=== PATIENT | female | born 1970 | race American Indian/Alaskan Native ===

== ENCOUNTER 2018-10-06 00:26 | Emergency (ER) | payer BC, OTHER ==
[~2018-10-06] VITALS: Ht 170.2 cm; Wt 67.6 kg
[2018-10-06] MEDS ORDERED: ONDANSETRON 4 MG/2 ML VIAL IV ONE (00:45)
[2018-10-06] MEDS ORDERED: IV NORMAL SALINE 1000 ML BAG IV ONE ×2 (00:45→02:15)
[2018-10-06] MEDS ORDERED: MORPHINE SULFATE 2 MG/1 ML DISP.SYRIN IV ONE (00:45)
--- NOTE | 2018-10-06 00:45 | NUR ---
Pt. ambulated into ED w/ c/o lower mid abd. pain x 1 day 01/01, denies N/V/D states she had a "ruptured ovarian cyst x 1 month ago and this feels the same", A/Ox4, RR even and unlabored, speaks in clear and complete sentences, male licensed optician at bedside, bed in low position, wheels locked,
[2018-10-06] MEDS ORDERED: ONDANSETRON 4 MG/2 ML VIAL ONE (01:06)
[2018-10-06] MEDS ORDERED: MORPHINE SULFATE 2 MG/1 ML DISP.SYRIN ONE (01:06)
[2018-10-06 01:13] LABS: BASOPHILS % (AUTO) 0.6 % (0.0-2.0); EOSINOPHILS # (AUTO) 0.5 K/uL (0.0-0.7); EOSINOPHILS % (AUTO) 8.3 % (0.0-7.0); HEMATOCRIT 39.1 % (31.2-41.9); HEMOGLOBIN 12.9 g/dL (10.9-14.3); LYMPHOCYTES # (AUTO) 2.1 K/uL (20.0-40.0); LYMPHOCYTES % (AUTO) 34.2 % (20.5-51.5); MEAN CORPUSCULAR HEMOGLOBIN 29.3 uug (24.7-32.8); MEAN CORPUSCULAR HGB CONC 33 g/dL (32.3-35.6); MEAN CORPUSCULAR VOLUME 89.2 fL (75.5-95.3); MONOCYTES # (AUTO) 0.4 K/uL (2.0-10.0); MONOCYTES % (AUTO) 7.1 % (0.0-11.0); NEUTROPHILS # (AUTO) 3.1 K/uL (1.8-8.9); NEUTROPHILS % (AUTO) 49.8 % (38.5-71.5); PLATELET COUNT (AUTO) 282 K/uL (179-408); RED BLOOD CELL COUNT(AUTO) 4.38 MIL/uL (3.63-4.92); WHITE BLOOD COUNT (AUTO) 6.2 K/uL (3.8-11.8)
[2018-10-06 01:25] LABS: CARBON DIOXIDE 30 mmol/L (21-32); CHLORIDE 104 mmol/L (98-107); CREATININE 1.1 mg/dL (0.6-1.3); GLUCOSE 94 mg/dL (74-106); UREA NITROGEN, BLOOD 19 mg/dL (7-18)
[2018-10-06] MEDS ORDERED: LIDOCAINE VISCUS 2% 15 ML UDC MM ONE (01:30)
[2018-10-06] MEDS ORDERED: MAG HYDROX/AL HYDROX/SIMETH 30 ML LIQUID UDC PO ONE (01:30)
[2018-10-06] MEDS ORDERED: HYDROMORPHONE 1 MG/1 ML DISP.SYRIN IV ONE (01:30)
--- NOTE | 2018-10-06 01:30 | NUR ---
Pt. c/o stomach pain/heartburn/upset stomach - denies N/V, refuses dilauded, consulted w/ Dr. Gimenez,
[2018-10-06 01:31] LABS: ALANINE AMINOTRANSFERASE 27 U/L (14-59); ALKALINE PHOSPHATASE 80 U/L (50-136); ASPARTATE AMINOTRANSFERASE 10 U/L (15-37); BILIRUBIN,DIRECT 0.1 mg/dL (0.0-0.2); BILIRUBIN,TOTAL 0.1 mg/dL (0.2-1.0); LIPASE 246 U/L (73-393); TOTAL PROTEIN, SERUM 7.9 g/dL (6.4-8.2)
[2018-10-06] MEDS ORDERED: HYDROMORPHONE 1 MG/1 ML DISP.SYRIN ONE (01:31)
[2018-10-06] MEDS ORDERED: MAGNESIUM HYDROXIDE 30 ML LIQUID UDC ONE (01:38)
[2018-10-06] MEDS ORDERED: LIDOCAINE VISCUS 2% 15 ML UDC ONE (01:38)
[2018-10-06] MEDS ORDERED: MAG HYDROX/AL HYDROX/SIMETH 30 ML LIQUID UDC ONE (01:39)
--- NOTE | 2018-10-06 01:40 | NUR ---
US tech. at bedside
--- NOTE | 2018-10-06 01:47 | NUR ---
Called Physical Design Engineer for female drafting technician for US,
--- NOTE | 2018-10-06 01:53 | NUR ---
Manuela - Nurse Inside Sales Advisor at bedside for US witness,
[2018-10-06] MEDS ORDERED: KETOROLAC TROMETHAMINE 30 MG INJ ONE (02:21)
[2018-10-06] MEDS ORDERED: KETOROLAC TROMETHAMINE 30 MG INJ IVP ONE (02:30)
--- NOTE | 2018-10-06 02:30 | NUR ---
Called Rad. for CT w/ contrast,
[2018-10-06] MEDS ORDERED: IV NORMAL SALINE 250 ML IV ONE (02:42)
[2018-10-06] MEDS ORDERED: SWABABLE VALVE TRANSFER SET EA MC ONE (02:42)
[2018-10-06] MEDS ORDERED: IOHEXOL 300MG/ML 100 ML INFUS..BTL ONE (02:42)
--- NOTE | 2018-10-06 02:47 | NUR ---
Pt. disconnected from IV and monitor, IV patent/intact and infusing - no s/s infiltration/phlebitis, taken off unit via wheelchair for CT w/ contrast,
--- NOTE | 2018-10-06 03:13 | NUR ---
Pt. back from CT, up to use restroom, ambulated w/ steady gait, urine specimen collected and sent to lab, clear/yellow - no blood noted, IV fluids reconnected, monitor reconnected, all pt. needs met,
[2018-10-06 03:25] LABS: *BILIRUBIN,URIN NEGATIVE (NEGATIVE); *BLOOD, URINE 1+ (NEGATIVE); *CLARITY,URINE CLEAR (CLEAR); *COLOR,URINE YELLOW (YELLOW); *KETONES,URINE NEGATIVE (NEGATIVE); LEUKOCYTE ESTERASE ,URINE NEGATIVE (NEGATIVE); NITRITE, URINE NEGATIVE (NEGATIVE); UGLUCOSE NEGATIVE (NEGATIVE)
[2018-10-06 03:33] LABS: *URINE HCG, QUAL NEGATIVE (NEGATIVE)
[2018-10-06 03:35] LABS: BACTERIA,URINE NONE SEEN /HPF (NONE SEEN); SQUAMOUS EPITHELIAL CELL,UR FEW /HPF (NONE SEEN); WBC,URINE 0-3 /HPF (0-3)
--- NOTE | 2018-10-06 04:02 | NUR ---
Patient discharged to home in stable conditon. Written and verbal after care instructions given. Patient verbalizes understanding of instructions. Pt. d/c w/ prescription per MD order, d/c papers signed, all belongings w/ pt., ID band/IV removed, ambulated off unit w/ steady gait accompanied by male cracker off, JOSHUA, NAD
== END 2018-10-06 04:03 | disposition home or self-care (01) ==
LOC: ER 00:29
DX: R10.2 Pelvic and perineal pain (principal); R10.30 Lower abdominal pain, unspecified; F17.210 Nicotine dependence, cigarettes, uncomplicated; Z90.49 Acquired absence of other specified parts of digestive tract
CPT/HCPCS: 36415; 74177; 76856; 80048; 80076; 81000; 81001; 83690; 84702; 84703; 85025; 96374; 96375; 99284; J1885; J2270; J2405; Q9967; A4663; J1170; J7030; J7050

== ENCOUNTER 2024-11-23 11:36 | Emergency (ER) | payer BC, OTHER ==
[~2024-11-23] VITALS: Ht 170.2 cm; Wt 67.6 kg
[2024-11-23 11:42] VITALS: BP 115/72
[2024-11-23] MEDS ORDERED: LIDOCAINE HCL 1% 20 ML VIAL ONE (12:15)
[2024-11-23] MEDS ORDERED: METOCLOPRAMIDE HCL 10 MG/2 ML VIAL ONE (12:15)
[2024-11-23] MEDS ORDERED: METRONIDAZOLE 500 MG/NS 100ML 100 ML IV ONE (12:15)
[2024-11-23] MEDS ORDERED: CEFTRIAXONE /D5W 50ML IVPB **ER PYXIS IV ONE (12:15)
[2024-11-23] MEDS ORDERED: diphenhydrAMINE 50 MG/1 ML VIAL ONE (12:15)
[2024-11-23] MEDS: diphenhydrAMINE 50 MG/1 ML VIAL IV ONE (12:16)
[2024-11-23] MEDS ORDERED: HYDROMORPHONE 1 MG/1 ML DISP.SYRIN ONE (12:16)
[2024-11-23] MEDS: LIDOCAINE HCL 1% 20 ML VIAL TP ONE (12:16)
[2024-11-23] MEDS: HYDROMORPHONE 1 MG/1 ML DISP.SYRIN IV ONE (12:18)
[2024-11-23] MEDS: METOCLOPRAMIDE HCL 10 MG/2 ML VIAL IV ONE (12:20)
[2024-11-23] MEDS: METRONIDAZOLE 500 MG/NS 100 ML PIGGYBACK IV ONE (12:34)
[2024-11-23] MEDS ORDERED: HYDR-3972 PO (12:49)
[2024-11-23] MEDS ORDERED: DOXY100C5 PO (12:53)
[2024-11-23 14:00] VITALS: BP 122/79; O2SAT 96
[2024-11-24] MEDS ORDERED: HYDR-3972 PO (13:57)
== END 2024-11-23 14:03 | disposition home or self-care (01) ==
LOC: ER 11:36
DX: N75.1 Abscess of Bartholin's gland (principal); F17.200 Nicotine dependence, unspecified, uncomplicated; Z88.7 Allergy status to serum and vaccine; Z90.49 Acquired absence of other specified parts of digestive tract
CPT/HCPCS: 99284; 56405; 96365; 96375; J0696; J1200; J3490 ×2; J2765; J1171; A4606; A4663

== ENCOUNTER 2024-11-26 15:38 | Emergency (ER) | payer OTHER ==
[~2024-11-26] VITALS: Ht 170.2 cm; Wt 67.6 kg
[~2024-11-26 15:38] MED LIST: DOXY100C5 PO; HYDR-3972 PO
[2024-11-26 16:33] VITALS: BP 136/70; O2SAT 97
== END 2024-11-26 17:02 | disposition home or self-care (01) ==
LOC: ER 15:42
DX: N75.1 Abscess of Bartholin's gland (principal); F17.200 Nicotine dependence, unspecified, uncomplicated; Z48.00 Encounter for change or removal of nonsurgical wound dressing; Z90.49 Acquired absence of other specified parts of digestive tract
CPT/HCPCS: A4606; A4663